=== PATIENT | female | born 1950 | race Caucasian/White ===

== ENCOUNTER 2016-05-11 12:10 | Outpatient (RCR) | payer MEDICARE, MEDICAID ==
[~2016-05-11 12:10] MED LIST: ANTIVERT 12.512.5 MG PO; ARICEPT10 MG PO; ASPIRIN E.C. 8181 MG PO; DAZIDOX20 MG PO; ELAVIL100 MG PO; FLONASEALLERGY NS; FLORAJEN A20 Billion PO; K-DUR20 MEQ PO; LAMICTAL XR100 MG PO; LAMICTAL XR200 MG PO; LASIX 40MG TABL40 MG PO; LASIX 80MG TABL80 MG PO; LINZESS290CAP PO; LOPRESSOR 225 MG/TAB PO; MIRALAX PA17 GM/Dose PO; MOVANTIK25 MG PO; NAMENDA XR 28MG PO; NEURONTIN800 MG/TAB PO; NOVLOG SQ; OPANA ER15 MG PO; PLAQUENIL 200M200 MG PO; RT ADVAIR 228 DISKUS IH; RT SPIRIVA18 MCG IH; SIMBRINZA 0.2%-18 ML OP; SYNTHROID0.05 MG/TA PO; SYSTANE 0.4%-0.1 SOL OP; TRUSOPT OCUMETE10 ML OP; ZESTORETIC 25 M1 TAB PO
== END 2016-05-26 08:28 | disposition home or self-care (01) ==
LOC: WSPT 12:10
DX: R53.1 Weakness (principal); R42 Dizziness and giddiness; Z91.81 History of falling
CPT/HCPCS: G8978-GP; G8979-GP; G8980-GP

== ENCOUNTER → 2021-07-16 | Outpatient (CLI) | payer MEDICARE, MEDICAID | LOC: COL.PUL 11:30 | DX: I34.0 Nonrheumatic mitral (valve) insufficiency (principal); J98.11 Atelectasis; J45.40 Moderate persistent asthma, uncomplicated; I27.20 Pulmonary hypertension, unspecified; R91.1 Solitary pulmonary nodule; R16.0 Hepatomegaly, not elsewhere classified; Z85.42 Personal history of malignant neoplasm of other parts of uterus ==

== ENCOUNTER → 2021-11-06 | Outpatient (CLI) | payer MEDICARE, MEDICAID | LOC: COL.RAD 13:15 | DX: K76.9 Liver disease, unspecified (principal) | CPT/HCPCS: A9575 ==